=== PATIENT | female | born 1960 | race Hispanic/Latino ===

== ENCOUNTER 2017-04-19 15:14 | Emergency (ER) | payer BC ==
[2017-04-19 15:14] VITALS: BMI 33.4
[2017-04-19 15:30] VITALS: TEMP 98.7
[2017-04-19] MEDS ORDERED: Sodium Chloride 0.9% 1,000 ML IV STA (15:46)
[2017-04-19 16:22] LABS: BASO # 0.02 K/mm3 (0.0-2.0); BASO % 0.5 % (0.0-3.0); EOS % 0.2 % (1.5-5.0); GRAN # 3.16 (1.4-6.5); GRAN % 73.8 % (50.0-68.0); HEMATOCRIT 32.7 % (36.0-48.0); LYMPH # 0.7 (1.2-3.4); LYMPH % 15.7 % (22.0-35.0); MEAN CELL VOLUME 82.4 fl (80.0-105.0); MEAN CORPUSCULAR HEMOGLOBIN 27.2 pg (25.0-35.0); MEAN PLATELET VOLUME 9.7 fl (7.0-11.0); MONO # 0.4 (0.1-0.6); MONO % 9.8 % (1.0-6.0); RED CELL DISTRIBUTION WIDTH 13.4 % (11.5-14.5); URINE BILIRUBIN NEGATIVE (NEGATIVE); URINE BLOOD NEGATIVE (NEGATIVE); URINE GLUCOSE (UA) NEGATIVE (NEGATIVE); URINE KETONE NEGATIVE (NEGATIVE); URINE LEUKOCYTE ESTERASE NEGATIVE Leu/uL (NEGATIVE); URINE PROTEIN NEGATIVE mg/dL (<30 mg/dL); URINE UROBILINOGEN 0.2 E.U./dL (<1 E.U./dL); WHITE BLOOD COUNT 4.3 10^3/ul (4.5-11.0)
[2017-04-19 16:23] LABS: URINE APPEARANCE CLEAR (CLEAR); URINE COLOR YELLOW (YELLOW)
[2017-04-19 16:25] LABS: ALB/GLOB RATIO 1.2 (1.1-1.8); ALKALINE PHOSPHATASE 118 U/L (38-126); ALT/SGPT 53 U/L (7-56); AST/SGOT 42 U/L (14-36); BILIRUBIN,TOTAL 0.5 mg/dL (0.2-1.3); BLOOD UREA NITROGEN 14 mg/dL (7-21); CALCIUM 9.3 mg/dL (8.4-10.5); CARBON DIOXIDE 28 mmol/L (21-33); CHLORIDE 100 mmol/L (98-107); GFR AFRICAN-AMERICAN > 60; GLUCOSE,RANDOM 95 mg/dL (70-110); LIPASE 111 U/L (23-300); SODIUM 135 mmol/L (132-148); TOTAL PROTEIN 7.3 g/dL (5.8-8.3)
[2017-04-19] MEDS ORDERED: Iohexol 350 MG/100 ML VIAL ONE (16:35)
--- NOTE | 2017-04-19 16:38 | ED PDOC ---
Arrival/HPI - General Chief Complaint: Abdominal Pain Time Seen by Provider: 04/19/17 15:37 - History of Present Illness Narrative History of Present Illness (Text): 56 y/o F c PMHx cholecystectomy over 10 years ago p/w R flank pain x 4 hours. Pain began in the R upper back, radiated down to the R flank, severe, sharp, felt similar to gallbladder attack. Patient reports nausea. She denies fever, chills, chest pain, dyspnea, diarrhea, constipation, discoloration of urine or dysuria, vaginal bleeding. Past Medical History - Tetanus Immunization Tetanus Immunization: Unknown - Reproductive Menopause: Yes - Cardiac Hx Hypertension: Yes - Psychiatric Hx Substance Use: No - Surgical History Hx Section: Yes Hx Cholecystectomy: Yes - Anesthesia Hx Anesthesia Reactions: No Hx Malignant Hyperthermia: No - Suicidal Assessment Feels Threatened In Home Enviroment: No Family/Social History Family/Social History: No Known Family HX Smoking Status: Never Smoked Hx Alcohol Use: Yes Frequency of alcohol use: Socially Hx Substance Use: No Hx Substance Use Treatment: No Allergies/Home Meds Allergies/Adverse Reactions: Allergies No Known Allergies Allergy (Verified 12/16/14 15:34) Home Medications: Home Meds Medication Instructions Recorded Confirmed Metoprolol Succinate [Toprol XL] 50 mg PO DAILY 12/16/14 04/19/17 Esomeprazole Magnesium [Nexium] 40 mg PO DAILY 04/19/17 04/19/17 Olmesartan/Hydrochlorothiazide 1 tab PO DAILY 04/19/17 04/19/17 [Benicar Hct 20-12.5 mg Tablet] Review of Systems - Physician Review All systems were reviewed & negative as marked: Yes - Review of Systems Constitutional: absent: Fevers Cardiovascular: absent: Chest Pain Physical Exam - Physical Exam Narrative Physical Exam (Text): Constitutional: No acute distress. Head: Normocephalic. Atraumatic. Eyes: PERRL. ENT: Moist mucous membranes. Neck: Supple. Cardiovascular: Regular rate. Chest: No tenderness. Respiratory: Clear to auscultation bilaterally. GI: Soft. Mild tenderness to deep palpation RUQ. Nondistended. Back: No CVA tenderness. No midline tenderness. Musculoskeletal: No tenderness or swelling of extremities. Skin: No rash. Neurologic: Alert, no focal deficit. Vital Signs Temp Pulse Resp BP Pulse Ox 04/19/17 15:26 98.7 F 96 H 18 136/86 96 Medical Decision Making ED Course and Treatment: Toradol, Zofran, IVF administered. UA negative for infection or blood. LFTs largely normal. EKG NSR 87 bpm, no ST elevations. CT IMPRESSION: 1. There is a moderate-sized hiatal hernia. 2. There is mild hypodense fatty infiltration of the liver. 3. There is mild right hydronephrosis versus parapelvic cysts. This could be differentiated with delayed CT imaging through the kidneys. Hypodense left renal parapelvic cysts are identified. An additional small hypodense left renal cortical cyst is visualized. 4. There is mild distention of the base of the appendix measuring 0.8 cm in diameter. There is no acute surrounding periappendiceal stranding. Clinical correlation is recommended. 5. Diverticulosis. 6. Incidental/non-acute findings are described above. Discussed case with radiologist, recommends sending patient back for delayed contrast imaging through kidneys so he can differentiate between cysts vs hydronephrosis. - Lab Interpretations Lab Results: 04/19/17 16:00 04/19/17 16:00 Lab Results 04/19/17 16:00: Urine Color Yellow, Urine Appearance Clear, Urine pH 6.0, Ur Specific [place] 1.015, Urine Protein Negative, Urine Glucose (UA) Negative, Urine Ketones Negative, Urine Blood Negative, Urine Nitrate Negative, Urine Bilirubin Negative, Urine Urobilinogen 0.2, Ur Leukocyte Esterase Negative 04/19/17 16:00: Sodium 135, Potassium 4.0, Chloride 100, Carbon Dioxide 28, Anion Gap 10, BUN 14, Creatinine 0.8, Est GFR ( Amer) > 60, Est GFR (Non- Af Amer) > 60, Random Glucose 95, Calcium 9.3, Total Bilirubin 0.5, AST 42 H, ALT 53, Alkaline Phosphatase 118, Total Protein 7.3, Albumin 4.0, Globulin 3.4, Albumin/Globulin Ratio 1.2, Lipase 111 04/19/17 16:00: WBC 4.3 L, RBC 3.97, Hgb 10.8 L, Hct 32.7 L, MCV 82.4, MCH 27.2 , MCHC 33.0, RDW 13.4, Plt Count 282, MPV 9.7, Gran % 73.8 H, Lymph % (Auto) 15.7 L, [place] % (Auto) 9.8 H, Eos % (Auto) 0.2 L, Baso % (Auto) 0.5, Gran # 3.16 , Lymph # 0.7 L, Upson # 0.4, Eos # 0.0, Baso # 0.02 - RAD Interpretation Radiology Orders: 04/19/17 15:46 ABD & PELVIS IV CONTRAST ONLY [CT] Stat 04/19/17 18:26 ABDOMEN W/O CONTRAST [CT] Stat - Medication Orders Current Medication Orders: Discontinued Medications Sodium Chloride (Sodium Chloride 0.9%) 1,000 mls @ 999 mls/hr IV .Q1H1M STA Stop: 04/19/17 16:46 Last Admin: 04/19/17 16:11 Dose: 999 mls/hr eMAR Start Stop Document 04/19/17 16:11 SE (Rec: 04/19/17 16:11 [id number] Intravenous Solution Start Date 04/19/17 Start Time 16:11 Ketorolac Tromethamine (Toradol) 30 mg IVP STAT STA Stop: 04/19/17 15:47 Last Admin: 04/19/17 16:11 Dose: 30 mg MAR Pain Assessment Document 04/19/17 16:11 SE (Rec: 04/19/17 16:11 [id number] Pain Reassessment Is this a pain reassessment? No Sleep Is patient sleeping during reassessment? No Presence of Pain Presence of Pain Yes Pain Scale Used Pain Scale Used Numeric IVP Administration Document 04/19/17 16:11 SE (Rec: 04/19/17 16:11 [id number] Charges for Administration # of IVP Administrations 1 Ondansetron HCl (Zofran Inj) 8 mg IVP STAT STA Stop: 04/19/17 15:47 Last Admin: 04/19/17 16:11 Dose: 8 mg IVP Administration Document 04/19/17 16:11 SE (Rec: 04/19/17 16:11 [id number] Charges for Administration # of IVP Administrations 1 Disposition/Present on Arrival - Present on Arrival History of DVT/PE: No History of Uncontrolled Diabetes: No Urinary Catheter: No History of Decub. Ulcer: No History Surgical Site Infection Following: None - Disposition Diagnosis: Renal colic Disposition: HOME/ ROUTINE Patient Problems: Current Active Problems Problem Status Onset Renal colic Acute Condition: STABLE Discharge Instructions (ExitCare): Renal Colic (ED) Prescriptions: Ibuprofen [Motrin] 600 mg PO Q6 #25 tab Ondansetron ODT [Zofran ODT] 4 mg PO Q8 #12 odt Referrals: Henrique Valente MD [Primary Care Provider] - Follow up with primary Forms: [place] ([place])
--- NOTE | 2017-04-19 18:18 | CT ---
EXAM: CT Abdomen and Pelvis With Intravenous Contrast EXAM DATE/TIME: 04/19/2017 3:46 PM CLINICAL HISTORY: The patient age is 56 years old and is female; Pain; Abdominal pain; Flank; Right; Prior surgery; Surgery date: 6+ months; Surgery type: Gallbladder removal; Patient HX: R flank pain, nausea, h/o cholecystectomy Facility exam id and description: Ct abdpelciv abd pelvis iv contrast only TECHNIQUE: Axial computed tomography images of the abdomen and pelvis with intravenous contrast. All CT scans at this facility use one or more dose reduction techniques, viz.: automated exposure control; ma/kV adjustment per patient size (including targeted exams where dose is matched to indication; i.e. head); or iterative reconstruction technique. MIP reconstructed images were created and reviewed. Coronal and sagittal reformatted images were created and reviewed. CONTRAST: 97 mL of omnipaque 350 administered intravenously. COMPARISON: No relevant prior studies available. FINDINGS: Lower thorax: There is a moderate-sized hiatal hernia. ABDOMEN: Liver: There is mild hypodense fatty infiltration of the liver. No hepatic mass is visualized. Gallbladder and bile ducts: Surgical clips are identified within the gallbladder fossa, compatible with cholecystectomy. Pancreas: Normal contour, without acute peripancreatic stranding. Spleen: No splenomegaly. Adrenals: No mass. Kidneys and ureters: There is mild right hydronephrosis versus parapelvic cysts. This could be differentiated with delayed CT imaging through the kidneys. Hypodense left renal parapelvic cysts are identified. An additional small hypodense left renal cortical cyst is visualized. Stomach and bowel: Colonic diverticula are identified, without acute inflammatory stranding of the adjacent mesentery. Appendix: There is mild distention of the base of the appendix measuring 0.8 cm in diameter. There is no acute surrounding periappendiceal stranding. PELVIS: Bladder: No mass. Reproductive: Unremarkable as visualized. ABDOMEN and PELVIS: Intraperitoneal space: No free air. Bones/joints: Hypertrophic degenerative changes are noted within the spine. Soft tissues: There is mild herniation of fat into the umbilicus. Vasculature: No abdominal aortic aneurysm. Lymph nodes: No enlarged lymph nodes. Other findings: There is abnormal morphology of the lumbosacral junction, which may be developmental. IMPRESSION: 1. There is a moderate-sized hiatal hernia. 2. There is mild hypodense fatty infiltration of the liver. 3. There is mild right hydronephrosis versus parapelvic cysts. This could be differentiated with delayed CT imaging through the kidneys. Hypodense left renal parapelvic cysts are identified. An additional small hypodense left renal cortical cyst is visualized. 4. There is mild distention of the base of the appendix measuring 0.8 cm in diameter. There is no acute surrounding periappendiceal stranding. Clinical correlation is recommended. 5. Diverticulosis. 6. Incidental/non-acute findings are described above.
--- NOTE | 2017-04-19 19:17 | CT ---
EXAM: CT Abdomen Without Intravenous Contrast EXAM DATE/TIME: 04/19/2017 6:26 PM CLINICAL HISTORY: The patient age is 56 years old and is female; Pain; Abdominal pain; Prior surgery; Patient HX: Delayed contrast imaging of kidneys, flank pain Facility exam id and description: Ct abds abdomen w/o contrast TECHNIQUE: Axial computed tomography images of the abdomen without intravenous contrast. All CT scans at this facility use one or more dose reduction techniques, viz.: automated exposure control; ma/kV adjustment per patient size (including targeted exams where dose is matched to indication; i.e. head); or iterative reconstruction technique. Coronal and sagittal reformatted images were created and reviewed. COMPARISON: CT - ABD PELVIS IV CONTRAST ONLY 2017-04-19 16:56 FINDINGS: Lower thorax: There is a moderate-sized hiatal hernia. Liver: No hepatic mass is visualized. Gallbladder and bile ducts: Surgical clips are identified within the gallbladder fossa, compatible with cholecystectomy. Pancreas: Normal contour, without acute peripancreatic stranding. Spleen: No splenomegaly. Adrenals: No mass. Kidneys and ureters: Delayed imaging through the kidneys demonstrates bilateral hypodense parapelvic cysts. A few small hypodense probable left renal cortical cysts are visualized. There is no hydronephrosis bilaterally. Stomach and bowel: Colonic diverticula are identified, without acute inflammatory stranding of the adjacent mesentery. Appendix: There is mild stable distention of the base of the appendix measuring 0.8 cm in diameter. There is no acute surrounding periappendiceal stranding. Intraperitoneal space: No free air. Bones/joints: Hypertrophic degenerative changes are noted within the spine. There is abnormal morphology of the lumbosacral junction, which may be developmental. Soft tissues: There is mild herniation of fat into the umbilicus. Vasculature: No abdominal aortic aneurysm. Lymph nodes: No enlarged lymph nodes. Other findings: For further discussion of findings within the abdomen, refer to the CT abdomen/pelvis report from the same day. IMPRESSION: 1. Delayed imaging through the kidneys demonstrates bilateral hypodense parapelvic cysts. A few small hypodense probable left renal cortical cysts are visualized. There is no hydronephrosis bilaterally. 2. Additional CT findings described above.
[2017-04-19 20:06] VITALS: BP 127/78; PULSE 88; RESP 17; O2SAT 99
--- NOTE | 2017-04-20 09:58 | CARD ---
APPROVED REPORT EKG Measurement Heart [id number] <Conclusion> Normal sinus rhythm Nonspecific ST and T wave abnormality
== END 2017-04-19 20:05 | disposition home or self-care (01) ==
LOC: ED 15:14
DX: N23 Unspecified renal colic (principal); I10 Essential (primary) hypertension
CPT/HCPCS: 74150; 74177; 80053; 81003; 83690; 85025; 87086; 93005; 96374; 96375; 99284; J1885; J2405; J7040; Q9967